=== PATIENT | male | born 2000 | race Two or more races ===

== ENCOUNTER 2020-07-02 17:18 | Emergency (ER) | payer MEDICAID ==
[~2020-07-02] VITALS: Ht 180.3 cm; Wt 115.9 kg
--- NOTE | 2020-07-02 18:20 | NUR ---
Sitter in room with pt as pt impulsive and elopement risk.
[2020-07-02 18:54] LABS: BASOPHILS % (AUTO) 0.5 % (0-1); EOSINOPHILS # (AUTO) 0.1 X10'3 (0-0.9); EOSINOPHILS % (AUTO) 0.8 % (0-6); HEMATOCRIT 43.4 % (42.0-52.0); HEMOGLOBIN 15.2 g/dl (14.0-17.9); LYMPHOCYTES # (AUTO) 1.7 X10'3 (1.1-4.8); LYMPHOCYTES % (AUTO) 19.5 % (21-51); MEAN CORPUSCULAR HEMOGLOBIN 31.2 PG (27.0-31.0); MEAN CORPUSCULAR VOLUME 89.2 FL (78-98); MEAN PLATELET VOLUME 9.5 FL (7.4-10.4); MONOCYTES # (AUTO) 0.8 X10'3 (0-0.9); MONOCYTES % (AUTO) 8.4 % (2-12); NEUTROPHILS # (AUTO) 6.3 X10'3 (1.8-7.7); NEUTROPHILS % (AUTO) 70.8 % (42-75); PLATELET COUNT 246 X10'3 (140-440); RED BLOOD COUNT 4.87 X10'6 (4.70-6.10); RED CELL DISTRIBUTION WIDTH 13.4 % (11.5-14.5); WHITE BLOOD COUNT 8.9 X10'3 (4.5-11.0)
[2020-07-02] MEDS ORDERED: OLANZapine 2.5MG tablet PO ONE (19:05)
[2020-07-02 19:16] LABS: ALANINE AMINOTRANSFERASE 200 U/L (12-78); ALBUMIN 4.7 G/DL (3.4-5.0); ALBUMIN/GLOBULIN RATIO 1.3 (1.1-1.5); ALKALINE PHOSPHATASE 165 IU/L (46-116); ANION GAP 14 (8-16); ASPARTATE AMINO TRANSFERASE 90 U/L (10-37); BILIRUBIN,TOTAL 0.5 MG/DL (0.1-1.0); BLOOD UREA NITROGEN 15 MG/DL (7-18); BUN/CREATININE RATIO 12.7 (5.4-32.0); CALCIUM 9.3 MG/DL (8.5-10.1); CHLORIDE 106 MMOL/L (99-107); CREATININE 1.18 MG/DL (0.60-1.10); ETHANOL < 0.010 GM/DL (0.0-0.010); GLUCOSE 97 MG/DL (70-104); POTASSIUM 3.8 MMOL/L (3.5-5.1); SODIUM 143 MMOL/L (135-145); TOTAL CARBON DIOXIDE 22.7 MMOL/L (24-32); TOTAL PROTEIN 8.4 G/DL (6.4-8.2); eGFR 78 ML/MIN
[2020-07-02] MEDS ORDERED: Melatonin 3mg tablet PO SCH ×3 (19:35→21:00)
[2020-07-02 19:55] LABS: URINE AMPHETAMINE SCREEN NEGATIVE (Neg); URINE BARBITUATE SCREEN NEGATIVE (Neg); URINE BENZODIAZEPINES SCREEN NEGATIVE (Neg); URINE CANNABINOID SCREEN NEGATIVE (Neg); URINE COCAINE SCREEN NEGATIVE (Neg); URINE METHADONE SCREEN NEGATIVE (Neg); URINE OPIATE SCREEN NEGATIVE (Neg); URINE PHENCYCLIDINE SCREEN NEGATIVE (Neg)
--- NOTE | 2020-07-02 19:56 | NUR ---
PATIENT GAVE SECURITY HIS PROMISE RING TO HOLD UNTIL HE IS DISCHARGED.
--- NOTE | 2020-07-02 20:33 | NUR ---
PT CURRENTLY LYING ON THE GURNEY ON HIS BACK AND IS AWAKE. SITTER OUTSIDE OF ROOM AAT.
--- NOTE | 2020-07-02 22:56 | NUR ---
pt calm and in his bed. Is talking to himself. sitter within view of pt aat.
--- NOTE | 2020-07-03 05:34 | NUR ---
pt packet faxed to [facility]
--- NOTE | 2020-07-03 06:59 | NUR ---
PATIENT RECEIVED ON BED AWAKE,NO REPORTED PAIN/DISCOMFORT.
[2020-07-03 08:21] VITALS: BP 125/90
--- NOTE | 2020-07-03 08:21 | NUR ---
Patient calm and conversant at this time,does not recall how he got here.Denies SI or SI history,reports he does have SI hx according to mom.Reports visual and auditory hallucinations intermittently however does not have it at this time,"when i rest everything calms down".
== END 2020-07-03 09:44 | disposition home or self-care (01) ==
LOC: ER 17:19
DX: F30.8 Other manic episodes (principal); Z88.0 Allergy status to penicillin
CPT/HCPCS: 36415; 80053; 80305; 80320; 85025; 99285